=== PATIENT | female | born 1985 | race Two or more races ===

== ENCOUNTER 2018-07-16 17:39 | Emergency (ER) | payer MEDICAID ==
[~2018-07-16] VITALS: Ht 167.6 cm; Wt 68.0 kg
[2018-07-16] MEDS ORDERED: ONDANSETRON 4 MG/2 ML VIAL IV ONE (18:00)
[2018-07-16] MEDS ORDERED: IV NORMAL SALINE 1000 ML BAG IV ONE (18:00)
[2018-07-16] MEDS ORDERED: ONDANSETRON 4 MG/2 ML VIAL ONE ×2 (18:09→18:50)
[2018-07-16 18:17] LABS: BASOPHILS # (AUTO) 0.1 K/uL (0.0-8.0); BASOPHILS % (AUTO) 0.7 % (0.0-2.0); EOSINOPHILS % (AUTO) 0.3 % (0.0-7.0); HEMATOCRIT 41.5 % (31.2-41.9); LYMPHOCYTES % (AUTO) 10.6 % (20.5-51.5); MEAN CORPUSCULAR HGB CONC 34 g/dL (32.3-35.6); MEAN CORPUSCULAR VOLUME 91.7 fL (75.5-95.3); MONOCYTES # (AUTO) 0.3 K/uL (2.0-10.0); MONOCYTES % (AUTO) 3.5 % (0.0-11.0); NEUTROPHILS # (AUTO) 8.1 K/uL (1.8-8.9); NEUTROPHILS % (AUTO) 84.9 % (38.5-71.5); PLATELET COUNT (AUTO) 246 K/uL (179-408); RED BLOOD CELL COUNT(AUTO) 4.52 MIL/uL (3.63-4.92); WHITE BLOOD COUNT (AUTO) 9.6 K/uL (3.8-11.8)
--- NOTE | 2018-07-16 18:18 | NUR ---
IV PLACED, 1L 0.9NS INFUSING, LABS DRAWN-SENT, MONITOR SHOWS NSR, XT5=773% ON ROOMAIR. I CALLED PT'S BOYFRIEND SABAS AND NOTIFIED HIM OF PT'S PRESENCE IN THE ER, BOYFRIEND STATED FAMILY IN ROUTE
[2018-07-16 18:30] LABS: CREATININE 0.6 mg/dL (0.6-1.3)
[2018-07-16 18:35] LABS: BILIRUBIN,DIRECT 0.1 mg/dL (0.0-0.2); BILIRUBIN,TOTAL 0.4 mg/dL (0.2-1.0)
[2018-07-16] MEDS ORDERED: PANTOPRAZOLE SODIUM 40 MG VIAL IV ONE (18:45)
[2018-07-16] MEDS ORDERED: ONDANSETRON IV *ER 4 MG/2 ML VIAL IV ONE (18:45)
[2018-07-16] MEDS ORDERED: HYDROMORPHONE 1 MG/1 ML DISP.SYRIN IV ONE (18:45)
[2018-07-16] MEDS ORDERED: PANTOPRAZOLE SODIUM 40 MG VIAL ONE (18:50)
[2018-07-16] MEDS ORDERED: HYDROMORPHONE 1 MG/1 ML DISP.SYRIN ONE (18:50)
[2018-07-16] MEDS ORDERED: METOCLOPRAMIDE HCL 10 MG/2 ML VIAL ONE (20:57)
[2018-07-16] MEDS ORDERED: METOCLOPRAMIDE HCL 10 MG/2 ML VIAL IV ONE (21:00)
--- NOTE | 2018-07-16 23:02 | NUR ---
Patient discharged to home in stable conditon. Written and verbal after care instructions given. Patient verbalizes understanding of instructions. PATIENT LEFT WITH STABLE GAIT, ACCOMPANIED BY .
[2018-07-16 23:03] VITALS: BP 129/71
== END 2018-07-16 23:03 | disposition home or self-care (01) ==
LOC: ER 17:42
DX: K21.9 Gastro-esophageal reflux disease without esophagitis (principal); J45.909 Unspecified asthma, uncomplicated; Z90.49 Acquired absence of other specified parts of digestive tract
CPT/HCPCS: 36415; 80048; 80076; 83690; 84702; 85025; 96361; 96374; 96375; 96376; 99283; C9113; J1170; J2405 ×2; J2765; A4663; J7030